=== PATIENT | female | born 1990 | race Caucasian/White ===

== ENCOUNTER 2016-09-01 14:12 | Emergency (ER) | payer MEDICAID ==
[2016-09-01] MEDS ORDERED: NORMAL SALINE 1,000 ML IV ONE (14:48)
[2016-09-01] MEDS ORDERED: ONDANSETRON HCL 4 MG/2 ML VIAL ONE (14:48)
[2016-09-01] MEDS ORDERED: INSULIN REGULAR HUMAN 100 UNITS/ML ML ONE (14:50)
[2016-09-01 14:54] LABS: BASOPHIL# 0.1 X 10^3uL (0.0-0.1); EOSINOPHILS# 0.1 X 10^3uL (0.0-0.4); LYMPHOCYTES 40.8 % (20.0-40.0); LYMPHOCYTES# 2.2 X 10^3uL (0.8-3.8); MEAN CORPUS. HGB CONCENTRATION 32.3 g/dL (32.0-36.0); MEAN CORPUSCULAR HEMOGLOBIN 21.1 pg (29.0-35.0); MEAN PLATELET VOLUME 8.8 fL (7.4-10.4); MONOCYTES 5.2 % (2.0-10.0); MONOCYTES# 0.3 X 10^3uL (0.2-1.0); NEUTROPHILS# 2.6 X 10^3uL (2.6-6.7); PLATELET COUNT 153 X 10^3uL (130-440); RED BLOOD COUNT 5.35 X 10^6uL (4.20-6.10); WHITE BLOOD COUNT 5.3 X 10^3uL (3.9-10.7)
[2016-09-01 14:56] LABS: HEMATOCRIT 34.9 % (36.0-48.0); HEMOGLOBIN 11.3 g/dL (12.0-16.0); MEAN CELL VOLUME 65.2 fL (80.0-100.0); RED CELL DISTRIBUTION WIDTH 16.2 % (11.5-14.5)
[2016-09-01 15:01] LABS: BETA HYDROXYBUTYRATE 0.18 mmol/L (<0.40)
[2016-09-01 15:07] LABS: BLOOD UREA NITROGEN 11 mg/dL (7-17); CALCIUM 9.1 mg/dL (8.4-10.2); CHLORIDE 105 mmol/L (98-107); CREATININE 0.5 mg/dL (0.5-1.0); EST GLOMERULAR FILTRATION RATE > 60 mL/min; GLUCOSE 192 mg/dL (70-100); SODIUM 136 mmol/L (137-145)
[2016-09-01] MEDS ORDERED: KETOROLAC TROMETHAMINE 30 MG/ML VIAL ONE (15:17)
--- NOTE | 2016-09-01 16:35 | ER NURSING DOCUMENTATION ---
Nurse's Notes [facility] Name:Rosina Mccoy Age:25 yrs Sex:Female :1990 Arrival Date:09/01/2016 Time:14:12 Bed4 Private MD:Ayad Ortega Diagnosis:Diabetes Mellitus, Type 1 with Hyperglycemia;Dehydration Presentation: 09/01 14:19 Transition of care: patient was not received from another setting of care. tg 14:19 Acuity: ABDIEL 3 tg 14:19 Method Of Arrival: Private Vehicle tg 14:23 Presenting complaint: Patient states: Pt states she was seen in the [facility] clinic mk2 yesterday and diagnosed with PID. Pt arrives with continued complaints of cramping, high blood sugar and fever. Notified ED Physician of Dr. Pollock notified. 14:29 Care prior to arrival: Medication(s) given: Tylenol, INSULIN. mk2 Triage Assessment: 14:34 General: Appears uncomfortable, Behavior is cooperative. Pain: Complains of pain in mk2 suprapubic area, right lower quadrant and left lower quadrant Pain does not radiate. Pain currently is 7 out of 10 on a pain scale. Quality of pain is described as crampy. Neuro: No deficits noted. Cardiovascular: No deficits noted. Respiratory: Breath sounds are clear bilaterally. GI: Reports nausea, Denies diarrhea, vomiting. : Denies burning with urination. Derm: Skin temperature is warm. Historical: - Allergies: No known drug Allergies; - Home Meds: 1. azithromycin 1 gram oral pack 2 packets as a single dose 2. Trileptal 150 mg oral tab 3. trazodone 150 mg oral tab 1 tab prn 4. Sprintec (28) 0.25-35 mg-mcg oral tab 1 tab once daily 5. BuSpar Oral 6. pregabalin 50 mg oral cap 2 caps 7. Novolog Sub-Q - PMHx: Diabetes - IDDM; - Tetanus: < 10 years. - Ebola Screening: : Patient negative for fever greater than or equal to 101.5 degrees Fahrenheit, and additional compatible Ebola Virus Disease symptoms. Patient denies exposure to infectious person. Patient denies travel to an Ebola-affected area in the 21 days before illness onset. No symptoms or risks identified at this time. . - Immunization history: Flu Vaccine < 1 year. - Social history: Smoking status: Patient states was never smoker of tobacco. Patient/guardian denies using alcohol, street drugs. Screenin:35 Infectious Disease Risk None. Abuse screen: Denies threats or abuse. Nutritional mk2 screening: No deficits noted. Assessment: 14:35 See Triage Assessment done by same RN. mk2 Vital Signs: 14:20 BP 119 / 56; Pulse 66; Resp 15; Pulse Ox 96% on R/A; Weight 83.46 kg; Height 5 ft. 6 mk2 in. (167.64 cm); Pain 7/10; 14:20 BP 120 / 73 (auto/); mk2 14:24 Pulse Ox 96% ; mk2 15:29 Pulse Ox 94% ; mk2 15:33 BP 129 / 66 (auto/); mk2 15:54 Pulse Ox 95% ; mk2 15:54 BP 119 / 62; Pulse 82; Pain 3/10; mk2 16:02 Pain 3/10; mk2 14:20 Body Mass Index 29.70 (83.46 kg, 167.64 cm) mk2 ED Course: 14:13 Patient arrived in ED. lm3 14:13 Ayad Ortega MD is Private Physician. lm3 14:20 Triage completed. tg 14:20 Valuables Remains with patient Patient has correct armband on for positive tg identification. Placed in gown. Bed in low position. Call light in reach. Side rails up X 1. 14:23 Brandi Nguyen, RN is Primary Nurse. mk2 14:35 Pulse ox on. NIBP on. Verbal reassurance given. mk2 14:53 Inserted peripheral IV: 20 gauge in left Wrist and blood collected. mk2 14:54 Say Pollock MD is Attending Physician. sc 15:40 Ayad Ortega MD is Referral Physician. sc Administered Medications: 14:50 Drug: NS 0.9% 1000 ml; Route: IV; Rate: bolus; Site: left wrist; mk2 15:41 Follow up: IV Status: Completed infusion; IV Intake: 1000ml mk2 14:50 Drug: Insulin Regular Human 3 units; Route: IVP; Site: left wrist; mk2 15:35 Follow up: Response: Pain is decreased mk2 14:50 Drug: Zofran 4 mg; Route: IVP; Infused Over: 2 mins; Site: left wrist; mk2 15:16 Follow up: Response: Nausea is decreased mk2 15:15 Drug: Toradol 30 mg; Route: IVP; Site: left wrist; mk2 15:36 Follow up: Response: Pain is decreased mk2 15:40 Drug: NS 0.9% 1000 ml; Route: IV; Rate: bolus; Site: left wrist; mk2 16:35 Follow up: IV Status: Completed infusion; IV Intake: 1000ml mk2 Point of Care Testing: Blood Glucose: 14:20 Blood Glucose: 184 mg/dL; tg 15:36 Blood Glucose: 128 mg/dL; mk2 16:34 Blood Glucose: 102 mg/dL; mk2 Ranges: Intake: 15:41 IV: 1000ml; Total: 1000ml. mk2 16:35 IV: 1000ml; Total: 2000ml. mk2 Outcome: 15:40 Discharge ordered by MD. walls 15:54 Discharge instructions given to patient, Instructed on discharge instructions, follow mk2 up and referral plans. medication usage. 15:54 IV D/Jude 16:34 Discharged to home ambulatory. mk2 16:34 Condition: improved 16:35 Patient left the ED. mk2 09/03 12:05 Discharge F/U Call: Unable to reach: no answer st Signatures: Jairo Gasca RN Lu Rose RN Say Cassidy MD MD sc Kruger, Meg RN RN 2 Radha Hernadez lm3
--- NOTE | 2016-09-01 16:35 | ER PHYSICIAN DOCUMENTATION ---
Physician Documentation [facility] Name:Rosina Mccoy Age:25 yrs Sex:Female :1990 Arrival Date:09/01/2016 Time:14:12 Bed4 Private MD:Ayad Ortega ED, Scott Disposition: 09/01/16 15:40 Discharged to Home/Self Care. Impression: Diabetes Mellitus, Type 1 with Hyperglycemia, Dehydration. - Condition is Good. - Discharge Instructions: DEHYDRATION (6y-Adult), DIABETIC HYPERGLYCEMIA. - Medical Reconciliation form form. - Follow up: Ayad Ortega MD; When: As needed; Reason: Worsening of condition, Continuance of care. - Problem is an ongoing problem. - Symptoms have improved. HPI: 09/01 15:36 This 25 yrs old Female presents to ER via Private Vehicle with complaints of sc High Blood Sugar. 15:36 The patient or guardian reports hyperglycemia, that was potentially precipitated by sc illness, possible PID. Onset: The symptom(s)/episode began/occurred 2 day(s) ago. Associated signs and symptoms: Pertinent positives: anorexia, nausea. Current symptoms: In the emergency department the patient's symptoms are unchanged from the initial presentation. Historical: - Allergies: No known drug Allergies; - Home Meds: 1. azithromycin 1 gram oral pack 2 packets as a single dose 2. Trileptal 150 mg oral tab 3. trazodone 150 mg oral tab 1 tab prn 4. Sprintec (28) 0.25-35 mg-mcg oral tab 1 tab once daily 5. BuSpar Oral 6. pregabalin 50 mg oral cap 2 caps 7. Novolog Sub-Q - PMHx: Diabetes - IDDM; - Tetanus: < 10 years. - Ebola Screening: : Patient negative for fever greater than or equal to 101.5 degrees Fahrenheit, and additional compatible Ebola Virus Disease symptoms. Patient denies exposure to infectious person. Patient denies travel to an Ebola-affected area in the 21 days before illness onset. No symptoms or risks identified at this time. . - Immunization history: Flu Vaccine < 1 year. - Social history: Smoking status: Patient states was never smoker of tobacco. Patient/guardian denies using alcohol, street drugs. ROS: 15:37 Eyes: Negative for injury, pain, redness, and discharge. sc ENT: Negative for injury, pain, and discharge. Cardiovascular: Negative for chest pain, palpitations, and edema. Respiratory: Negative for shortness of breath, cough, wheezing, and pleuritic chest pain. MS/Extremity: Negative for injury and deformity. 15:37 Skin: Negative for injury, rash, and discoloration. sc 15:37 Constitutional: Positive for fatigue. 15:37 Neck: Negative for pain with movement, stiffness, tenderness. 15:37 Abdomen/GI: Positive for nausea, abdominal cramps. 15:37 Neuro: Positive for headache. Exam: Head/Face: Normocephalic, atraumatic. ENT: Nares patent. No nasal discharge, no septal abnormalities noted. Tympanic membranes are normal and external auditory canals are clear. Oropharynx with no redness, swelling, or masses, exudates, or evidence of obstruction, uvula midline. Mucous membranes moist. Chest/axilla: Normal chest wall appearance and motion. Nontender with no deformity. No lesions are appreciated. Cardiovascular: Regular rate and rhythm with a normal S1 and S2. No gallops, murmurs, or rubs. Normal PMI, no JVD. No pulse deficits. 15:38 Back: No spinal tenderness. No costovertebral tenderness. Full range of motion. sc 15:38 Constitutional: The patient appears alert, awake, comfortable. 15:38 Eyes: Periorbital structures: Pupils: equal, round, and reactive to light and accomodation. 15:38 Neck: ROM/movement: is normal, Meningeal signs: are not present. 15:38 Respiratory: the patient does not display signs of respiratory distress, Respirations: normal, Breath sounds: are normal, clear throughout. 15:38 Abdomen/GI: Bowel sounds: normal, Palpation: soft, mild abdominal tenderness, in the suprapubic area. Vital Signs: 14:20 BP 119 / 56; Pulse 66; Resp 15; Pulse Ox 96% on R/A; Weight 83.46 kg; Height 5 ft. 6 mk2 in. (167.64 cm); Pain 7/10; 14:20 BP 120 / 73 (auto/); mk2 14:24 Pulse Ox 96% ; mk2 15:29 Pulse Ox 94% ; mk2 15:33 BP 129 / 66 (auto/); mk2 15:54 Pulse Ox 95% ; mk2 15:54 BP 119 / 62; Pulse 82; Pain 3/10; mk2 16:02 Pain 3/10; mk2 14:20 Body Mass Index 29.70 (83.46 kg, 167.64 cm) 2 MDM: 14:54 Patient medically screened. ms 15:38 Differential diagnosis: DKA, hyperglycemia, dehydration or pid. Data reviewed: vital sc signs, nurses notes, lab test result(s), and as a result, I will continue to observe the patient, administer IV fluids. Counseling: I had a detailed discussion with the patient and/or guardian regarding: the historical points, exam findings, and any diagnostic results supporting the discharge/admit diagnosis, lab results, the need for outpatient follow up, for a referral to a specialist, to return to the emergency department if symptoms worsen or persist or if there are any questions or concerns that arise at home. Medication response: The patient's symptoms have improved. 09/01 14:57 Order name: CBC AUTO DIF, MDIF/RMOR IF IND; Complete Time: 15:34 EDMS 09/01 15:34 Interpretation: Normal Except: HEMATOCRIT 34.9; mild anemia. ms 09/01 15:06 Order name: BETA HYDROXYBUTYRATE; Complete Time: 15:34 EDMS 09/01 15:34 Interpretation: Normal. ms 09/01 15:09 Order name: BASIC METABOLIC PANEL; Complete Time: 15:34 EDMS 09/01 15:34 Interpretation: Normal Except: GLUCOSE 192. ms 09/01 14:20 Order name: FSBS; Complete Time: 14:20 tg Dispensed Medications: 14:50 Drug: NS 0.9% 1000 ml; Route: IV; Rate: bolus; Site: left wrist; mk2 15:41 Follow up: IV Status: Completed infusion; IV Intake: 1000ml 2 14:50 Drug: Insulin Regular Human 3 units; Route: IVP; Site: left wrist; mk2 15:35 Follow up: Response: Pain is decreased mk2 14:50 Drug: Zofran 4 mg; Route: IVP; Infused Over: 2 mins; Site: left wrist; mk2 15:16 Follow up: Response: Nausea is decreased mk2 15:15 Drug: Toradol 30 mg; Route: IVP; Site: left wrist; mk2 15:36 Follow up: Response: Pain is decreased mk2 15:40 Drug: NS 0.9% 1000 ml; Route: IV; Rate: bolus; Site: left wrist; mk2 16:35 Follow up: IV Status: Completed infusion; IV Intake: 1000ml mk2 Point of Care Testing: Blood Glucose: 14:20 Blood Glucose: 184 mg/dL; tg 15:36 Blood Glucose: 128 mg/dL; mk2 16:34 Blood Glucose: 102 mg/dL; mk2 Ranges: Critical Glucose Levels:Adult <50 mg/dl or >400 mg/dl <40 mg/dl or >180 mg/dl Signatures: Jairo Gasca RN RN tg Say Pollock MD MD sc Kruger, Meg, RN RN mk2
== END 2016-09-01 16:35 | disposition home or self-care (01) ==
LOC: ER 14:12
DX: E10.65 Type 1 diabetes mellitus with hyperglycemia (principal); E86.0 Dehydration; R11.0 Nausea; R53.83 Other fatigue; R10.30 Lower abdominal pain, unspecified; R51 Headache; D64.9 Anemia, unspecified; Z79.899 Other long term (current) drug therapy
CPT/HCPCS: 80048; 82010; 85025; 96361; 96374; 96375; 99284; J1815; J1885; J2405; J7030